=== PATIENT | male | born 1995 | race Caucasian/White ===

== ENCOUNTER 2016-11-28 14:16 | Emergency (ER) | payer OTHER ==
[~2016-11-28] VITALS: Ht 177.8 cm; Wt 62.8 kg
[2016-11-28 14:23] VITALS: Ht 177.8 cm; Wt 62.8 kg
[2016-11-28] MEDS ORDERED: AMOX500C3 PO (14:46)
--- NOTE | 2016-11-28 14:47 | EMERGENCY ROOM VISIT NOTE ---
ED Visit Note First contact with patient: 14:25 CHIEF COMPLAINT: Sore throat, fever, body and muscle aches times one day HISTORY OF PRESENT ILLNESS: Patient is a 21-year-old male who presents emergency department for evaluation of a sore throat and fever that started yesterday. He states that he developed a scratchy, irritated throat last evening. He could feel that he was going to get sick. He woke up at 3:00 this morning, with sweats, chills, body and muscle aches, sore throat and a mild throbbing headache. He did not check his temperature with a thermometer. He took a Tylenol Cold and flu medication and went back to bed. His symptoms have persisted this morning. He continues to note a sore throat, and feels achy. He did not take any additional medications for his symptoms. He denies any skin rashes. Denies any posterior neck pain or stiffness. He denies any specific sick contacts, but is a college student and has noted multiple sick people in class. REVIEW OF SYSTEMS: Review of systems as per HPI. All other systems reviewed were negative. At least 6 systems reviewed. PMH: Electronic medical records are reviewed and summarized as above/below. See Problem List. SOCIAL HISTORY: Patient is a college student who lives in an apartment with roommates. He does not smoke. PHYSICAL EXAM: Vital Signs: Reviewed Nurse's notes. Temperature 36.7C orally. MENTAL STATUS: Alert and cooperative. Nontoxic appearing. HEAD: Atraumatic, without temporal or scalp tenderness. EYES: PERRL, EOMI, no discharge or injection. EARS: Tympanic membranes intact, not inflamed, have normal contour. External canals clear. NOSE: Nares patent, turbinates moist without rhinorrhea. MOUTH: Mucous membranes moist, no lesions, tongue and gums appear normal. THROAT: Tonsils are erythematous bilaterally, palatal petechiae noted. No exudates appreciated. Uvula is midline. Airway is patent. No trismus. NECK: Supple, cervical chain lymphadenopathy noted bilaterally. No nuchal rigidity. HEART: Regular rate and rhythm without murmurs, ectopy, gallops, or rubs. LUNGS: Clear to auscultation and breath sounds equal, no wheezes, rales, or rhonchi. SKIN: Normal. NEUROLOGICAL: Sensory and motor functions grossly intact. Normal gait. ED course: The patient was seen and evaluated as above. He has a fever, cervical chain lymphadenopathy and acute pharyngitis. Clinically will treat him for strep pharyngitis. He does not have any evidence for retropharyngeal or peritonsillar abscess. No nuchal rigidity suspect meningitis. He is otherwise well-appearing. Mononucleosis was entertained, however given the early illness testing is not indicated. Conservative care measures were discussed. He was encouraged to follow-up with S if his symptoms are not improving. Medication reconciliation: I attest that I have personally reviewed the patient' s current medication list. Blood pressure screening : Patient was found to have normal blood pressure on screening and does not require follow-up. Problem List Surgical Problems: (1) History of excision of pilonidal cyst Status: Resolved (2) [place] teeth extracted Status: Resolved Vital Signs Date Time Temp Pulse Resp B/P (MAP) Pulse Ox O2 Delivery O2 Flow Rate FiO2 11/28/16 14:23 37.6 88 18 121/82 98 Room Air Departure Information Impression Primary Impression: Acute pharyngitis Prescriptions Amoxicillin (AMOXIL) 500 Mg Cap 500 MG PO TID, #21 CAP Prov: Mica Morgan PA 11/28/16 Referrals No Doctor, Assigned (PCP) Patient Instructions My [facility] Additional Instructions Amoxicillin 500mg : Take one pill 3 times daily for 7 days for your throat infection. All antibiotics can cause diarrhea. If this occurs and you feel worse or it does not resolve in 1-2 days follow up with your doctor or return to the Emergency Department as this could be signs of serious underlying problems. Any medication can cause an allergic reaction, stop the pills immediately and return to the ER for rash, hives, breathing difficulties, or swelling. Ibuprofen(Motrin, Advil) may be used for fever or pain. Use 600mg every six hours as needed. Take with food. Avoid using more than 2400mg in a 24 hour period. Do not use 2400mg per day for more than three consecutive days without physician direction. Prolonged inappropriate use can lead to stomach upset or ulcers. (AND/OR) Acetaminophen(Tylenol) may be used for fever or pain. Use 1000mg every six hours as needed. Avoid using more than 3000mg in a 24 hour period. Tylenol/acetaminophen and Motrin/ibuprofen may be safely taken together or alternated for fever/pain control. They work differently and won't interact with each other. An example using 6 hour dosing would be Tylenol at Noon, Motrin at 3 PM, then Tylenol at 6 PM, and then Motrin at 9 PM. This alternating example gives your child a fever/pain controlling medication every three hours and generally works very well. Rest and drink plenty of fluids. Controlling your fever with Tylenol and Ibuprofen as above will make you feel better. Continue current medications. Return to the ER for severe headache, neck stiffness, chest pain, difficulty breathing, worsening throat pain, persistent fevers, vomiting, worsening of your condition, or as needed. Follow up with S this week for a recheck of your current condition.
[2016-11-28 15:15] VITALS: BP 114/75; PULSE 108; TEMP 38.2; O2SAT 98
== END 2016-11-28 15:15 | disposition home or self-care (01) ==
LOC: C.EDB 14:18 → C.EDD 15:15
DX: J02.9 Acute pharyngitis, unspecified (principal)

== ENCOUNTER 2017-03-29 15:15 | Emergency (ER) | payer OTHER ==
[~2017-03-29] VITALS: Ht 180.3 cm; Wt 60.9 kg
[2017-03-29 15:23] VITALS: TEMP 36.8; Ht 180.3 cm; Wt 60.9 kg
[2017-03-29] MEDS ORDERED: ONDANSETRON INJ 2 MG/ML 2 ML VIAL IV STA (15:50)
--- NOTE | 2017-03-29 15:56 | EMERGENCY ROOM VISIT NOTE ---
History First contact with patient: 15:40 Chief Complaint: VOMITING Stated Complaint: VOMITING,NAUSEA Nursing Triage Summary: "I was drinking a lot last night. and they told me I was incoherent last night. I can't swallow anything, not even water. It comes right back up. much worse than my typical hangover". n/v/d since last night. "passed out between [id number]", attempting to vomit, but nothing coming out. some blood with mucus. denies drug use. Mixed drinks and beer last night History of Present Illness The patient is a 21 year old male who presents to the Emergency Room with complaints of nausea and vomiting which began at approximately 1 AM. The patient states he had 4-5 mixed drinks in 4-5 shots last night and at times and approximately one and half hours. Approximately one hour after, the patient states he began vomiting and his roommates reported him "incoherent." The patient states he awoke approximately 9 AM, and for several hours, he was unable to get away from the toilet due to vomiting. He has not been able to drink or eat anything, and states he is having difficulty getting it down past his throat. He states more recently, he began vomiting blood tinged mucus. He has been expressing diarrhea today as well. The patient states he has been trying to flush the alcohol out of his system, but is unable to drink fluids in order to do that. The patient describes the vomit and diarrhea as dark brown in color, but denies coffee-ground or black emesis. He states there is no blood in the stool. He denies any abdominal pain, dizziness, chest pain, dyspnea, recent illness, fever, chills. He denies trauma or injury while intoxicated or this morning. Review of Systems A complete 10 point review of systems was reviewed with the patient with pertinent positives and negatives as per history of present illness. All else were negative. Past Medical/Surgical History Medical Problems: (1) No Known Active Medical Problems Surgical Problems: (1) History of excision of pilonidal cyst (2) [place] teeth extracted Social History Smoking Status: Never Smoker Current/Historical Medications No Active Prescriptions or Reported Meds Allergies Sulfa Physical Exam Vital Signs Date Time Temp Pulse Resp B/P (MAP) Pulse Ox O2 Delivery O2 Flow Rate FiO2 03/29/17 17:28 82 16 124/76 100 03/29/17 15:23 36.8 80 18 127/93 94 Room Air Physical Exam VITALS: Vitals are noted on the nurse's note and reviewed by myself. Vital signs stable. GENERAL: This is a 21-year-old male, in no acute distress, nondiaphoretic, well- developed well-nourished. SKIN: The skin was without rashes, erythema, edema, or bruising. There is no tenting of the skin. Capillary reflex less than 2 seconds. HEAD: Normocephalic atraumatic. EARS: External auditory canals clear, tympanic membranes pearly das without erythema or effusion bilaterally. EYES: Pupils equal round and reactive to light and accommodation. Conjunctivae without injection, sclerae without icterus. Extraocular movements intact. NOSE: Patent, turbinates without inflammation or discharge. No sinus tenderness. MOUTH: Mucous membranes moist. Tonsils are not enlarged. Pharynx without erythema or exudate. Uvula midline. Airway patent. Tongue does not deviate. NECK: Supple without nuchal rigidity. No lymphadenopathy. No thyromegaly. Cervical spine is nontender. No JVD. HEART: Regular rate and rhythm without murmurs gallops or rubs. LUNGS: Clear to auscultation bilaterally without wheezes, rales or rhonchi. No dullness to percussion. No retractions or accessory muscle use. ABDOMEN: Positive bowel sounds x 4. Normal tympanic percussion. Soft, nontender, without masses or organomegaly. Lopez sign negative. No guarding or rebound tenderness. MUSCULOSKELETAL: No muscle atrophy, erythema, or edema noted. Full range of motion without joint tenderness in all extremities. No tenderness to palpation. Normal gait. Strength 5/5 throughout. NEURO: Patient was alert and oriented to person place and time. Normal sensation to light and sharp touch. Deep tendon reflexes 2+ throughout. No focal neurological deficits. Medical Decision & Procedures ER Provider Diagnostic Interpretation: CBC is without leukocytosis, anemia, thrombocytopenia. PRP without electrolyte or renal abnormalities. Laboratory Results 03/29/17 16:13 Red Blood Count 5.40, Mean Corpuscular Volume 82.0, Mean Corpuscular Hemoglobin 28.0, Mean Corpuscular Hemoglobin Concent 34.1, Mean Platelet Volume 10.8, Neutrophils (%) (Auto) 72.0, Lymphocytes (%) (Auto) 19.4, Monocytes (%) (Auto) 7.9, Eosinophils (%) (Auto) 0.5, Basophils (%) (Auto) 0.1, Neutrophils # (Auto) 5.73, Lymphocytes # (Auto) 1.55, Monocytes # (Auto) 0.63, Eosinophils # (Auto) 0.04, Basophils # (Auto) 0.01 03/29/17 16:13 Test 03/29/17 16:13 White Blood Count 7.97 K/uL (4.8-10.8) Red Blood Count 5.40 M/uL (4.7-6.1) Hemoglobin 15.1 g/dL (14.0-18.0) Hematocrit 44.3 % (42-52) Mean Corpuscular Volume 82.0 fL (80-100) Mean Corpuscular Hemoglobin 28.0 pg (25-34) Mean Corpuscular Hemoglobin Concent 34.1 g/dl (32-36) Platelet Count 303 K/uL (130-400) Mean Platelet Volume 10.8 fL (7.4-10.4) Neutrophils (%) (Auto) 72.0 % Lymphocytes (%) (Auto) 19.4 % Monocytes (%) (Auto) 7.9 % Eosinophils (%) (Auto) 0.5 % Basophils (%) (Auto) 0.1 % Neutrophils # (Auto) 5.73 K/uL (1.4-6.5) Lymphocytes # (Auto) 1.55 K/uL (1.2-3.4) Monocytes # (Auto) 0.63 K/uL (0.11-0.59) Eosinophils # (Auto) 0.04 K/uL (0-0.5) Basophils # (Auto) 0.01 K/uL (0-0.2) RDW Standard Deviation 41.8 fL (36.4-46.3) RDW Coefficient of Variation 14.1 % (11.5-14.5) Immature Granulocyte % (Auto) 0.1 % Immature Granulocyte # (Auto) 0.01 K/uL (0.00-0.02) Anion Gap 11.0 mmol/L (3-11) Est Creatinine Clear Calc Drug Dose 113.1 ml/min Estimated GFR () 141.7 Estimated GFR (Non- 122.2 BUN/Creatinine Ratio 10.3 (10-20) Calcium Level 9.2 mg/dl (8.5-10.1) Medications Administered Medications (Trade) Dose Ordered Sig/Tabatha Route Start Time Stop Time Status Last Admin Dose Admin Ondansetron HCl (Zofran Inj) 4 mg NOW STAT IV 03/29/17 15:50 03/29/17 15:53 DC 03/29/17 16:40 4 MG ED Course The patient was seen and evaluated as above. IV access obtained and labs drawn. The patient was given 500 mL bolus normal saline solution and 4 mg Zofran IV. I discussed all labs with the patient, and he is feeling better at this time. He was given Powerade to see if he is able to tolerate fluids by mouth. Discharge instructions reviewed, and the patient was discharged home in good condition. Medical Decision This is a 21-year-old male patient who presents to the emergency department today complaining of nausea, vomiting, and vomiting blood-tinged sputum after an evening of binge drinking last night. The patient states he is feeling worse and he has ever felt with any hangover in the past. The patient improved with fluids and Zofran, and was able to tolerate by mouth fluids. His labs did not show acute electrolyte abnormality. I suspect Thalia-Mcarthur tears as the cause of the patient's hematemesis, but he was encouraged to follow-up at [facility] if he continues to experience symptoms. Etiologies such as alcohol overdose, Thalia-Mcarthur tears, GI bleed, gastroenteritis, food borne illness, infections, obstruction, pancreatitis, appendicitis, diverticulitis, inflammatory bowel disease, GI bleed, biliary pathology, toxicologic as well as others were entertained. Medication Reconcilliation Current Medication List: was personally reviewed by me Blood Pressure Screening Patient's blood pressure: Normal blood pressure Impression Primary Impression: Alcoholic gastritis Additional Impression: Thalia-Mcarthur tear Departure Information Dispostion Home / Self-Care Condition GOOD Prescriptions No Active Prescriptions or Reported Meds Referrals No Doctor, Assigned (PCP) [facility] Patient Instructions ED Alcohol Abuse, ED Overdose Alcohol, My [facility] Additional Instructions He was seen in the emergency department today for, vomiting, diarrhea related to alcohol overuse last night. Please stay hydrated and drink plenty of fluids. Get plenty of rest. I do suspect the blood in the vomit is related to small tears in the esophagus from retching and vomiting throughout the night. If this does not improve in 2- 3 days, follow-up with [facility] for further evaluation and management. Always drink responsibly. Return to the emergency department for worsening symptoms, fever, vomiting more blood, or other concerning symptoms. Problem Qualifiers Primary Impression: Alcoholic gastritis Chronicity: acute Gastritis bleeding: presence of bleeding unspecified Qualified Codes: K29.20 - Alcoholic gastritis without bleeding
[2017-03-29 16:44] LABS: BASO % 0.1 %; BASO ABS # 0.01 K/uL (0-0.2); EOS % 0.5 %; EOS ABS # 0.04 K/uL (0-0.5); HEMATOCRIT 44.3 % (42-52); HEMOGLOBIN 15.1 g/dL (14.0-18.0); IG# 0.01 K/uL (0.00-0.02); LYMPH % 19.4 %; LYMPH ABS # 1.55 K/uL (1.2-3.4); MEAN CORPUSCULAR HGB CONC 34.1 g/dl (32-36); MEAN PLATELET VOLUME 10.8 fL (7.4-10.4); MONO % 7.9 %; MONO ABS # 0.63 K/uL (0.11-0.59); NEUT ABS # 5.73 K/uL (1.4-6.5); PLATELET COUNT 303 K/uL (130-400); RED CELL DISTRIBUTION WIDTH CV 14.1 % (11.5-14.5); RED CELL DISTRIBUTION WIDTH SD 41.8 fL (36.4-46.3); WHITE BLOOD COUNT 7.97 K/uL (4.8-10.8)
[2017-03-29 16:51] LABS: CALCIUM 9.2 mg/dl (8.5-10.1); CREATININE 0.89 mg/dl (0.60-1.40); POTASSIUM 3.9 mmol/L (3.5-5.1)
[2017-03-29 17:28] VITALS: BP 124/76; PULSE 82; O2SAT 100
--- NOTE | 2017-03-29 23:18 | EMERGENCY ROOM VISIT NOTE ---
ED Visit Note First contact with patient: 15:40 The patient was seen and examined with PA. I agree with the history, physical and findings. Please see the note for disposition and details.
== END 2017-03-29 17:28 | disposition home or self-care (01) ==
LOC: C.EDB 15:16
DX: K29.20 Alcoholic gastritis without bleeding (principal); K22.6 Gastro-esophageal laceration-hemorrhage syndrome